=== PATIENT | male | born 1955 | race Caucasian/White ===

== ENCOUNTER 2019-07-03 18:44 | Inpatient (IN) | payer OTHER, MEDICAID ==
[~2019-07-03] VITALS: Ht 175.3 cm; Wt 75.7 kg
[2019-07-03 18:45] VITALS: BP_SYST 178
--- NOTE | 2019-07-03 18:49 | NUR ---
Patient to ER bed 05 to gown for evaluation. Side rails up.
--- NOTE | 2019-07-03 19:10 | NUR ---
Pt came to the ED for ambulance with lacquerer at bedside for low grade fever and cough. HX of quadriparesis, constipation, encephalopathy. No other complaints/injuries noted. Will cont. to monitor.
[2019-07-03 19:32] LABS: BASOPHILS # (AUTO) 0.1 K/uL (0.0-0.2); EOSINOPHILS # (AUTO) 0.3 K/uL (0.0-0.4); EOSINOPHILS % (AUTO) 3.4 % (0.0-4.0); HEMOGLOBIN 14.9 g/dL (14.0-18.0); LYMPHOCYTES # (AUTO) 2.3 K/uL (1.0-5.5); LYMPHOCYTES % (AUTO) 22.9 % (20.5-51.5); MEAN CORPUSCULAR HEMOGLOBIN 30 pg (27-31); MEAN CORPUSCULAR HGB CONC 33 % (32-36); MEAN CORPUSCULAR VOLUME 90 fL (79.0-98.0); MONOCYTES # (AUTO) 0.6 K/uL (0.0-1.0); MONOCYTES % (AUTO) 6.3 % (1.7-9.3); NEUTROPHILS # (AUTO) 6.6 K/uL (1.8-7.7); NEUTROPHILS % (AUTO) 66.4 % (40.0-70.0); PLATELET COUNT (AUTO) 258 K/uL (130-430); RED BLOOD CELL COUNT(AUTO) 5.03 MIL/uL (4.2-6.2); RED CELL DISTRIBUTION WIDTH 14.5 % (9.0-15.0)
[2019-07-03 19:55] LABS: CALCIUM 8.7 mg/dL (8.4-11.0); CREATININE 0.68 mg/dL (0.55-1.30); POTASSIUM 3.6 mmol/L (3.5-5.1)
--- NOTE | 2019-07-03 20:00 | NUR ---
Coral espinal in [facility] - 07/03/19 at 2023 by [email or web address] david Doss at bedside examining patient.
--- NOTE | 2019-07-03 20:00 | NUR ---
ER at bedside examining patient.
[2019-07-03 20:02] LABS: TOTAL BILIRUBIN 0.2 mg/dL (0.0-1.0)
[2019-07-03 20:11] LABS: INR 0.9 (0.80-1.20); PROTHROMBIN TIME 9.2 SECS (9.5-12.5)
--- NOTE | 2019-07-03 20:16 | NUR ---
Pts alarm adjuster Marlo at bedside. She reports that pt is a full code. She provided her "charge of house" Vidhi [phone].
[2019-07-03] MEDS ORDERED: ACETAMINOPHEN 325 MG TABLET PO PRN (22:00)
[2019-07-03] MEDS ORDERED: ONDANSETRON HCL 4 MG/2 ML VIAL IVP PRN (22:00)
[2019-07-03] MEDS ORDERED: IPRATROPIUM/ALBUTEROL SULFATE 3 ML AMPUL.NEB (DUONEB) INH PRN (22:00)
[2019-07-03] MEDS ORDERED: ZOLPIDEM TARTRATE 5 MG TABLET PO PRN (22:00)
[2019-07-03] MEDS ORDERED: cloNIDine HCL 0.1 MG TABLET PO PRN (22:15)
[2019-07-03] MEDS ORDERED: LORazepam 2 MG/ML VIAL IVP PRN (22:15)
--- NOTE | 2019-07-03 22:45 | NUR ---
Attempted to place in & out catheter per MD order. However, unable to advance catheter past 2 inches. Attempted with coude. Could not advance catheter. ER MD made aware.
[2019-07-03] MEDS ORDERED: DOCU250C14 PO (22:51)
[2019-07-03] MEDS ORDERED: MINE113C2 TP (22:51)
[2019-07-03] MEDS ORDERED: BISA10SU61 RC (22:51)
[2019-07-03] MEDS ORDERED: ASCO500T20 PO (22:51)
[2019-07-03] MEDS ORDERED: RANI-362 PO (22:51)
[2019-07-03] MEDS ORDERED: IBUP-1970 PO (22:51)
[2019-07-03] MEDS ORDERED: LOSA25TA3 PO (22:51)
[2019-07-03] MEDS ORDERED: ACET-2165 PO (22:51)
[2019-07-03] MEDS ORDERED: ATRMDI INH (22:51)
[2019-07-03] MEDS ORDERED: FLUT16SP16 NS (22:51)
[2019-07-03] MEDS ORDERED: POLY17PO4 PO (22:51)
[2019-07-03] MEDS ORDERED: [UNRECOGNIZED DRUG - CODE] PO (22:51)
[2019-07-03] MEDS ORDERED: [UNRECOGNIZED DRUG - CODE] PO (22:51)
[2019-07-03] MEDS ORDERED: MULT-1145 PO (22:51)
[2019-07-03] MEDS ORDERED: GUAI100S14 PO (22:51)
[2019-07-03] MEDS ORDERED: LOPE2CAP PO (22:51)
--- NOTE | 2019-07-03 22:52 | NUR ---
Medication reconciliation completed with information provided by [facility] [place] . Any prior medication reconciliation on file was reviewed and corrected.
[2019-07-03] MEDS ORDERED: AMIKACIN SULFATE 500 MG in NS 100 ML IV SCH (23:00)
--- NOTE | 2019-07-03 23:20 | NUR ---
ADMISSION NOTE Received patient from ER via samina, received report from JOSÉ LAWSON. Patient admitted with diagnosis of UTI AND MDRO URINE. Patient oriented to hospital routine, call light, toileting and safety-patient verbalized understanding.
[2019-07-03 23:22] VITALS: BP_SYST 153
[2019-07-03 23:28] VITALS: BP_SYST 153
--- NOTE | 2019-07-03 23:30 | NUR ---
OPENING NOTE RECEIVED CARE OF PT AND SBAR REPORT. PT IS AWAKE, NONVERBAL, NO SIGN OF PAIN BASED ON FLACC PAIN SCALE. BREATHING IS EVEN AND UNLABORED TO ROOM AIR. VSS. SAFETY AND FALL PRECAUTIONS ARE IN PLACE: BED IS LOCKED AND ALARMED IN LOWEST POSITION, SIDE RAILS UP X3, CALL LIGHT WITH PT, CLOSE TO NURSES STATION. WILL MONITOR.
[2019-07-04] MEDS: D5/0.45 NS 1,000 ML IV SCH ×3 (00:26→18:00)
--- NOTE | 2019-07-04 00:26 | NUR ---
IVF STARTED D51/2NS INFUSING AT 100 CC/HR.
[2019-07-04 00:35] VITALS: BP_SYST 135
[2019-07-04] MEDS ORDERED: AMIKACIN SULFATE 1000 MG/4 ML VIAL ONE (00:44)
--- NOTE | 2019-07-04 00:52 | NUR ---
AMIKACIN ANTIBIOTIC INFUSING ORDERED. NO S/S OF ADVERSE REACTION NOTED.
--- NOTE | 2019-07-04 02:35 | NUR ---
RN ROUNDS: PT RESTING IN BED, NO S/S OF ACUTE DISTRESS, BREATHING IS UNLABORED TO CPAP SETTINGS, NO SIGN OF PAIN OR DISCOMFORT. SAFETY AND CONTACT PRECAUTIONS REMAIN IN PLACE. WILL MONITOR.
--- NOTE | 2019-07-04 04:10 | NUR ---
IV RE-INSERTION: OLD IV PULLED OUT. Restarted on RIGHT HAND AND LEFT WRIST. Successful after MULTIPLE attempts. Resumed current IVF of D51/2NS and regulated @ 100 per hour. Will observe for any signs of infiltration.
--- NOTE | 2019-07-04 06:03 | NUR ---
INCONTINENCE CARE PT INCONTINENT OF URINE. PT CLEANED AND REPOSITIONED FOR COMFORT. NO S/S OF DISTRESS. BREATHING IS UNLABORED. IVF INFUSING AT ORDERED RATE. SAFETY AND CONTACT PRECAUTIONS ARE IN PLACE. WILL MONITOR.
--- NOTE | 2019-07-04 06:32 | NUR ---
CLOSING NOTE PT IS AWAKE, NONVERBAL, NO SIGN OF PAIN BASED ON FLACC PAIN SCALE. BREATHING IS EVEN AND UNLABORED. VSS. SAFETY AND FALL PRECAUTIONS ARE IN PLACE: BED IS LOCKED AND ALARMED IN LOWEST POSITION, SIDE RAILS UP X3, CALL LIGHT WITH PT, CLOSE TO NURSES STATION. WILL ENDORSE TO DAY SHIFT RN.
[2019-07-04 07:25] LABS: BASOPHILS # (AUTO) 0.1 K/uL (0.0-0.2); BASOPHILS % (AUTO) 0.5 % (0.0-2.0); EOSINOPHILS # (AUTO) 0.4 K/uL (0.0-0.4); HEMATOCRIT 44.1 % (36-54); HEMOGLOBIN 14.7 g/dL (14.0-18.0); LYMPHOCYTES # (AUTO) 1.9 K/uL (1.0-5.5); LYMPHOCYTES % (AUTO) 19.9 % (20.5-51.5); MEAN CORPUSCULAR HEMOGLOBIN 30 pg (27-31); MEAN CORPUSCULAR HGB CONC 33 % (32-36); MEAN CORPUSCULAR VOLUME 91 fL (79.0-98.0); MONOCYTES # (AUTO) 0.7 K/uL (0.0-1.0); MONOCYTES % (AUTO) 7.7 % (1.7-9.3); NEUTROPHILS # (AUTO) 6.4 K/uL (1.8-7.7); NEUTROPHILS % (AUTO) 67.9 % (40.0-70.0); PLATELET COUNT (AUTO) 244 K/uL (130-430); RED BLOOD CELL COUNT(AUTO) 4.85 MIL/uL (4.2-6.2); RED CELL DISTRIBUTION WIDTH 14.5 % (9.0-15.0); WHITE BLOOD COUNT (AUTO) 9.4 K/uL (4.8-10.8)
[2019-07-04 07:39] LABS: ALBUMIN 2.9 g/dL (3.4-4.8); CALCIUM 8.3 mg/dL (8.4-11.0); CREATININE 0.66 mg/dL (0.55-1.30); POTASSIUM 3.7 mmol/L (3.5-5.1); TOTAL BILIRUBIN 0.2 mg/dL (0.0-1.0)
--- NOTE | 2019-07-04 08:00 | NUR ---
ASSUMPTION OF CARE: RECEIVED PT AWAKE, ORIENTED TO NAME ONLY, HX: METAL DISORDER, DX: RISK FOR INJURY, R/T UTI, FEBRILE ILLNESS. PRESENTLY AFEBRILE, VSS, NO S/S OF DISTRESS, COOPERATIVE, FOLLOWS COMMAND, NO INDICATION OF PAIN OR DISCOMFORT. PT IS BREATHING EASY, LUNG SOUNDS ARE CLEAR, PULSES PALPABLE, FALL PRECAUTIONS IMPLEMENTED, SIDE RAILS UP X3, ROOM CLOSE TO NURSES STATION, WILL MONITOR CLOSELY, PT POSITIONED FOR COMFORT, IV SITE INTACT, PATENT, NO REDNESS OR SWELLING, CALL LIGHT PLACED WITHIN REACH, WILL CONT' TO MONITOR AND ASSESS.
[2019-07-04 08:46] VITALS: BP_SYST 147
--- NOTE | 2019-07-04 09:00 | NUR ---
SOFTWARE DESIGNER: MORNING MEDS GIVEN, PER ORDERED BY Khadijah, TOLERATED WELL, WILL CONT' TO MONITOR AND ASSESS.
--- NOTE | 2019-07-04 09:33 | NUR ---
Nutrition Update Santino Scale 13 noted. Pt admitted for febrile illness, UTI. Diet: cardiac, nectar thick liquids, puree BMI: 24.8 kg/m2 RD to follow per nutrition care standards.
[2019-07-04] MEDS ORDERED: ACETAMINOPHEN 325 MG TABLET PO PRN (12:00)
[2019-07-04] MEDS ORDERED: BISACODYL 10 MG/SUPPOSITORY RC PRN (12:00)
[2019-07-04] MEDS ORDERED: LOPERAMIDE HCL 2 MG CAPSULE PO PRN (12:00)
--- NOTE | 2019-07-04 12:00 | NUR ---
NURSES NOTES: PT REMAINS STABLE, WAS CLEANED, AND REPOSITIONED FOR COMFORT, TOLERATED WELL, NO SIGNIFICANT CHANGES NOTED, CALL LIGHT REMAINS WITHIN REACH, WILL CONT' WITH PLAN OF CARE.
[2019-07-04] MEDS: AMIKACIN SULFATE 1,100 MG in NS 250 ML IV SCH (12:27)
[2019-07-04 12:34] VITALS: BP_SYST 136
[2019-07-04] MEDS: IPRATROPIUM BROM 0.5 MG/2.5 ML VIAL.NEB (ATROVENT) INH SCH (13:00)
--- NOTE | 2019-07-04 14:00 | NUR ---
NURSES NOTES: PT REMAINS STABLE, WAS REPOSITIONED FOR COMFORT, TOLERATED WELL, NO SIGNIFICANT CHANGES NOTED, CALL LIGHT PLACED WITHIN REACH, WILL CONT' WITH PLAN OF CARE.
--- NOTE | 2019-07-04 14:57 | NUR ---
DCPA and Social Service contact MATERIAL LOADER met with Pt. at bedside for DCPA and SS contact. Pt. was alert and not well oriented, non-verbal admitted to [facility] for Febrile Illness . Pt. appeared confused, incapacitated and was unable to provide any meaningful information. Person to notify is his brother Ricardo Gonzales . Pt. [facility]. Pt. PCP is Dr. Ramirez Pt. is currently residing at [facility] , spoke with QUANTITATIVE SOFTWARE ENGINEER regarding Pt. Hx MATERIAL LOADER contacted [facility]. Pt. has been a resident at this facility since 07/17/13, pt is bed ridden, utilizes and electric wheelchair for mobility, full assist for ADLs. He is a client of the [facility], Dx; cerebral palsy and MR. Shipping Lead Person at [facility] is Sylwia Rob, . Per RN informed that current plan is for PT. to be D/C to [facility] as he currently is on IV Antibiotics, otherwise he has a 7 day bed hold at [facility]. DCP/CM/SS will remain available as needed.
[2019-07-04 16:28] VITALS: BP_SYST 129
--- NOTE | 2019-07-04 16:55 | NUR ---
WOUND EVALUATION: Wound Consult received from Dr. Ramirez. Thank you, Dr. Ramirez, for the consult. Patient received in a [place] Bed with an Atmos-Air 9000 mattress, awake, alert, non-verbal, holds onto bed rail with hand when asked to do so during wound care. Patient is unable to turn in bed independently. Santino Score is a 13. Past Medical History: Intellectually impaired, Cerebral Palsy, Hypertension, cardiac arrhythmia, Functional Quadriplegia, GERD. Recent Labs: WBC 9.4, RBC 4.85, hemoglobin 14.7, hematocrit 44.1, glucose 111, calcium 8.3, albumin 2.9, PT 9.2. Microbiology: Blood culture results 2 in progress. Urine culture results in progress. Intrinsic factors that delay wound healing: Cerebral Palsy, Hypoalbuminemia. Extrinsic factors that delay wound healing: Decreased mobility. Wound Assessment: 1. Left buttock: Pressure ulcer, present on admission. Wound bed has 90% dark red tissue, 10% white tissue. No odor, no drainage. Periwound intact. Surrounding tissue has scar tissue. Wound measures 1.5 cm x 1.0 cm. 2. Right buttock: Pressure ulcer, present on admission. Wound bed has 100% dark red tissue. No odor, no drainage. Periwound intact. Surrounding tissue has scar tissue. Wound measures 0.4 cm x 0.3 cm. Recommend: Cleanse wounds with normal saline. Apply moisture barrier cream to wounds and marvin-wounds. Apply Hydrogel to any portion of wound not covered by moisture barrier cream. Cover with Sacral foam dressing. Perform wound care daily, and as needed for dressing soiling or dislodgement. 3. Left proximal posterior thigh: Scar tissue, present on admission. Recommend: Cleanse involved area with mild soap and water. Pat dry. Apply moisture barrier cream to involved area. Perform site care 4 times a day, and as needed for soiling. 4. Scrotum: Erythema from IAD, present on admission. Recommend: Cleanse involved area with mild soap and water. Pat dry. Apply antifungal powder to involved area. Perform site care BID, and as needed for soiling. Also recommend: Reposition patient [id number] only every 2 hours with pillow support and off-load pressure areas with pillows for pressure re-distribution. Offload, elevate and float bilateral heels with one pillow lengthwise under each extremity at all times. Perform skin care and monitor skin integrity Q shift. Use moisture barrier cream on buttocks and other moisture susceptible areas QID and as needed for soiling. Place patient on a low air-loss mattress.
--- NOTE | 2019-07-04 18:00 | NUR ---
END OF SHIFT: PT REMAINS STABLE, IS BEING ASSISTED WITH EVENING MEAL, TOLERATING WELL, NO DISTRESS NOTED, NO INDICATION OF PAIN, WILL CONT' TO MONITOR, WILL ENDORSE TO ENERGY SCHEDULER NURSE.
[2019-07-04] MEDS: NYSTATIN 15 GM TOPICAL POWDER TP SCH ×2 (18:30→23:04)
--- NOTE | 2019-07-04 18:30 | NUR ---
WOUND CARE ASSESSMENT: WOUND ON BUTTOCKS ASSESSED AND TX BY ARACELI LAWSONMOUNTED POLICE OFFICER NURSE, CLEANED WITH NS, HYDROGEL AND BARRIER CREAM APPLIED, COVERED WITH FOAM DRESSING, OFF LOADED WITH PILLOW SUPPORT, MADE COMFORTABLE, NEEDS MET, WILL CONT' TO MONITOR AND ASSESS.
--- NOTE | 2019-07-04 19:30 | NUR ---
Opening notes Received report. Patient resting in bed. No signs of distress noted. Breathing even and unlabored. IV patent and intact, infusing fluids. No needs at this time. Call light with the patient, safety precautions in place.
[2019-07-04 19:44] LABS: BILIRUBIN,URINE NEGATIVE (NEGATIVE); BLOOD, URINE NEGATIVE (NEGATIVE); CLARITY/URINE CLEAR (CLEAR); COLOR,URINE YELLOW (YELLOW); GLUCOSE,URINE NEGATIVE (NEGATIVE); KETONES,URINE NEGATIVE (NEGATIVE); LEUKOCYTE ESTERASE ,URINE NEGATIVE (NEGATIVE); NITRITE, URINE NEGATIVE (NEGATIVE); PROTEIN URINE NEGATIVE (NEGATIVE); UROBILINOGEN,URINE 0.2 (0.2-1.0)
[2019-07-04 20:00] VITALS: BP_SYST 137
--- NOTE | 2019-07-04 21:30 | NUR ---
Resting Patient is resting in bed. No signs of distress noted. Breathing even and unlabored. IVF infusing well. Call light with the patient. Safety precautions in place.
--- NOTE | 2019-07-04 23:30 | NUR ---
Resting Patient resting in bed. Patient turned and repositioned to comfort. Hygiene care provided. call light with the patient. Safety precautions in place.
[2019-07-05 00:30] VITALS: BP_SYST 141
--- NOTE | 2019-07-05 02:00 | NUR ---
Sleeping Patient is sleeping. No signs of distress noted. Breathing even and unlabored on CPAP. IVF infusing well. No needs. Call light with the patient. Safety precautions in place.
--- NOTE | 2019-07-05 04:30 | NUR ---
Hygiene care provided. Patient tolerated well. Small smear of BM noted. Patient turned and repositioned. No other needs. Call light with the patient. Safety precautions in place.
--- NOTE | 2019-07-05 06:40 | NUR ---
Closing notes Patient resting in bed, no signs of distress noted. Breathing even and unlabored. IV patent and intact, infusing fluids. All needs met throughout the shift. Call light with the patient. Safety precautions in place. Will endorse care to day shift RN.
[2019-07-05] MEDS: IPRATROPIUM BROM 0.5 MG/2.5 ML VIAL.NEB (ATROVENT) INH SCH ×3 (08:19→20:53)
[2019-07-05 08:36] VITALS: BP_SYST 161
[2019-07-05] MEDS: CLORAZEPATE 3.75 MG PO SCH (09:00)
[2019-07-05] MEDS ORDERED: LOSARTAN POTASSIUM 25 MG TABLET PO SCH (09:00)
[2019-07-05] MEDS: MULTIVITS,CA,MINERALS/IRON/FA 1 TABLET PO SCH (09:09)
[2019-07-05] MEDS: DOCUSATE SODIUM 250 MG CAPSULE PO SCH (09:09)
[2019-07-05] MEDS: POLYETHYLENE GLYCOL 3350, 17 GM/ POWD.PACK PO SCH (09:09)
[2019-07-05] MEDS: ASCORBIC ACID 500 MG TABLET PO SCH (09:11)
[2019-07-05] MEDS: FLUTICASONE PROPIONATE 50 mCg/SPRAY 16 GM NS SCH (09:16)
[2019-07-05] MEDS: NYSTATIN 15 GM TOPICAL POWDER TP SCH ×2 (09:16→19:57)
[2019-07-05] MEDS: D5/0.45 NS 1,000 ML IV SCH ×3 (09:18→19:57)
[2019-07-05] MEDS: AMIKACIN SULFATE 1,100 MG in NS 250 ML IV SCH (11:28)
[2019-07-05 12:31] VITALS: BP_SYST 138
[2019-07-05 16:22] VITALS: BP_SYST 131
--- NOTE | 2019-07-05 16:22 | NUR ---
DC Planning: Per dr. Ramirez: he plans to dc pt on Monday and recommended pt goes to [facility]. CM please confirm pt agreement and inform snf choices.
--- NOTE | 2019-07-05 16:36 | NUR ---
Dietitian Recommendations * Recommend cardiac, puree, nectar thick liquid diet w/ Esteban BID (ONS Ensure Enlive TID comes standard/ pureed diet; provides an additional 1050 kcal/day, 60 gm protein/day; wound healing supplement provides ~180 kcal/day, 5 gm protein/day) JENNIFER REYES Please refer to Nutrition Assessment for details. Addendum: 07/05/19 at [address] Amended: Links added.
--- NOTE | 2019-07-05 18:26 | NUR ---
Patient tolerates meal well. Needs met at this time. Even unlabored respirations. Vital signs within normal limits. Will endorse care to night registered nurse. Balta Beavers RN
--- NOTE | 2019-07-05 19:10 | NUR ---
OPENING NOTES Bedside report received from dayshift nurse. Patient received lying in bed, awake, staring at the ceiling. No s/s of acute distress noted. Breathing is even and unlabored. IVF infusing well. IV site patent, no signs of infiltration or infection noted. Call light with patient. Bed alarm on. Bed is locked and at lowest position. Will continue to monitor.
[2019-07-05 20:00] VITALS: BP_SYST 125
--- NOTE | 2019-07-05 21:00 | NUR ---
PERICARE Patient in bed receiving marvin care from DIRECTOR OF SEARCH ENGINE OPTIMIZATION. Patient tolerating well. All needs met. IVF infusing well. Bed alarm on. Will continue to monitor.
--- NOTE | 2019-07-05 23:00 | NUR ---
ROUNDS Patient in bed asleep. No s/s of acute distress noted. Breathing even and unlabored. IVF infusing well. Bed alarm on. Will continue to monitor.
[2019-07-06] VITALS (7 sets, daily range): BP systolic 118–152
[2019-07-06] MEDS: IPRATROPIUM BROM 0.5 MG/2.5 ML VIAL.NEB (ATROVENT) INH SCH ×5 (00:13→20:00)
--- NOTE | 2019-07-06 01:00 | NUR ---
ROUNDS Patient in bed, sleeping. No s/s of acute distress noted. Breathing even and unlabored. IV infusing well. Bed alarm on. Will continue to monitor.
--- NOTE | 2019-07-06 03:00 | NUR ---
ROUNDS Patient in bed, sleeping. No s/s of acute distress noted. Breathing even and unlabored. IVF infusing well. Bed alarm on. Will continue to monitor.
--- NOTE | 2019-07-06 05:00 | NUR ---
PERICARE/WOUNDCARE Patient cleaned by KIER OPERATOR and RN at this time. Woundcare done at this time. Patient tolerated well. All needs met. Bed alarm on. Will continue to monitor.
[2019-07-06] MEDS: D5/0.45 NS 1,000 ML IV SCH ×2 (05:06→20:52)
--- NOTE | 2019-07-06 06:14 | NUR ---
CLOSING NOTES Patient in bed asleep at this time. No s/s of acute distress noted. Breathing even and unlabored. IVF infusing well, IV site is patent, no signs of infiltration or infection noted. HOB slightly raised. All needs met throughout shift. Fall, safety, and isolation precautions maintained throughout shift. Will continue to monitor until patient care is endorsed to oncoming dayshift nurse.
--- NOTE | 2019-07-06 07:14 | NUR ---
PATIENT OPENS EYES, MUMBLES. ON ROOM AIR. IV ON LEFT HAND, #22, INFUSED WITH D5 1/2 NS AT 100ML, SITE INTACT AND PATENT AT THIS TIME. IN ISO. CALL LIGHT IN PLACE, BED LOCKED AT THE LOWEST POSITION, WILL CONTINUE TO MONITOR.
[2019-07-06] MEDS: ASCORBIC ACID 500 MG TABLET PO SCH (08:13)
[2019-07-06] MEDS: LOSARTAN POTASSIUM 25 MG TABLET PO SCH (08:13)
[2019-07-06] MEDS: NYSTATIN 15 GM TOPICAL POWDER TP SCH ×2 (08:14→20:54)
[2019-07-06] MEDS: MULTIVITS,CA,MINERALS/IRON/FA 1 TABLET PO SCH (08:14)
[2019-07-06] MEDS: DOCUSATE SODIUM 250 MG CAPSULE PO SCH (08:14)
[2019-07-06] MEDS: FLUTICASONE PROPIONATE 50 mCg/SPRAY 16 GM NS SCH (08:15)
[2019-07-06] MEDS: CLORAZEPATE 3.75 MG PO SCH (08:47)
--- NOTE | 2019-07-06 09:40 | NUR ---
PATIENT IS TRANSFERRED INTO A LOW AIR LOSS MATTRESS. TOLERATED WITHOUT DISTRESS.
[2019-07-06] MEDS: AMIKACIN SULFATE 1,100 MG in NS 250 ML IV SCH (11:41)
--- NOTE | 2019-07-06 12:45 | NUR ---
PATIENT IS FED LUNCH, TOLERATED WITHOUT DISTRESS.
--- NOTE | 2019-07-06 15:12 | NUR ---
Patient is turned and repositioned for comfort.
--- NOTE | 2019-07-06 18:00 | NUR ---
Patient is fed by CORRECTIONAL FACILITY NURSE, tolerated without distress.
--- NOTE | 2019-07-06 19:45 | NUR ---
OPENING NOTES Patient is resting, eyes open, waving hands around, no respiratory distress observed. IVF running, dressings c/d/i. Q2H turning to be provided, heels elevated with a pillow, SCDs on. Call light within reach, bed alarm on, bed at lowest position. Will continue to monitor.
[2019-07-07 00:34] VITALS: BP_SYST 150
[2019-07-07] MEDS: IPRATROPIUM BROM 0.5 MG/2.5 ML VIAL.NEB (ATROVENT) INH SCH ×4 (01:32→20:11)
[2019-07-07] MEDS: D5/0.45 NS 1,000 ML IV SCH ×2 (06:19→17:55)
--- NOTE | 2019-07-07 06:56 | NUR ---
CLOSING NOTES Patient is resting, eyes open, waving hands around, no respiratory distress observed. IVF running, dressings c/d/i. Q2H provided, wound care provided, and heels elevated with a pillow, SCDs on. Call light within reach, bed alarm on, bed at lowest position. All needs met throughout shift.
[2019-07-07 08:00] VITALS: BP_SYST 123
[2019-07-07 08:51] LABS: ALBUMIN 3.3 g/dL (3.4-4.8); CALCIUM 8.9 mg/dL (8.4-11.0); CREATININE 0.62 mg/dL (0.55-1.30); POTASSIUM 3.9 mmol/L (3.5-5.1); TOTAL BILIRUBIN 0.4 mg/dL (0.0-1.0)
[2019-07-07] MEDS: ASCORBIC ACID 500 MG TABLET PO SCH (08:51)
[2019-07-07] MEDS: LOSARTAN POTASSIUM 25 MG TABLET PO SCH (08:51)
[2019-07-07] MEDS: MULTIVITS,CA,MINERALS/IRON/FA 1 TABLET PO SCH (08:51)
[2019-07-07] MEDS: FLUTICASONE PROPIONATE 50 mCg/SPRAY 16 GM NS SCH (08:51)
[2019-07-07] MEDS: DOCUSATE SODIUM 250 MG CAPSULE PO SCH (08:51)
[2019-07-07] MEDS: NYSTATIN 15 GM TOPICAL POWDER TP SCH ×2 (08:52→22:23)
[2019-07-07] MEDS: CLORAZEPATE 3.75 MG PO SCH (09:00)
--- NOTE | 2019-07-07 09:00 | NUR ---
PATIENT IS FED BREAKFAST. TOLERATED WITHOUT DISTRESS.
[2019-07-07 10:30] LABS: BASOPHILS % (AUTO) 0.5 % (0.0-2.0); EOSINOPHILS # (AUTO) 0.3 K/uL (0.0-0.4); EOSINOPHILS % (AUTO) 3.2 % (0.0-4.0); HEMATOCRIT 45.3 % (36-54); HEMOGLOBIN 15.3 g/dL (14.0-18.0); LYMPHOCYTES # (AUTO) 1.4 K/uL (1.0-5.5); LYMPHOCYTES % (AUTO) 16.7 % (20.5-51.5); MEAN CORPUSCULAR HEMOGLOBIN 30 pg (27-31); MEAN CORPUSCULAR HGB CONC 34 % (32-36); MEAN CORPUSCULAR VOLUME 89 fL (79.0-98.0); MONOCYTES # (AUTO) 0.5 K/uL (0.0-1.0); MONOCYTES % (AUTO) 6.4 % (1.7-9.3); NEUTROPHILS # (AUTO) 6.2 K/uL (1.8-7.7); NEUTROPHILS % (AUTO) 73.2 % (40.0-70.0); PLATELET COUNT (AUTO) 227 K/uL (130-430); RED BLOOD CELL COUNT(AUTO) 5.11 MIL/uL (4.2-6.2); RED CELL DISTRIBUTION WIDTH 14.2 % (9.0-15.0); WHITE BLOOD COUNT (AUTO) 8.5 K/uL (4.8-10.8)
[2019-07-07] MEDS: AMIKACIN SULFATE 1,100 MG in NS 250 ML IV SCH (10:58)
--- NOTE | 2019-07-07 11:04 | NUR ---
Discharge Planning: [facility] faxed pt referral to Sai Aldrich (f [phone] p [phone]) [facility] to follow up. Addendum: 07/07/19 at 1455 by Leona Petty DP DCP followed up with Seb Aldrich (f [phone] p [phone]) per liaison patient has a share cost of $1680.00 monthly. BELLE called patient brother Ricardo Gonzales ([phone]) he instructed to call patients correctional case manager Sylwia Rob [phone] BELLE left message on voice mail.
[2019-07-07 12:00] VITALS: BP_SYST 115
[2019-07-07 16:00] VITALS: BP_SYST 130
[2019-07-07 19:30] VITALS: BP_SYST 120
--- NOTE | 2019-07-07 19:30 | NUR ---
OPENING NOTES Patient is resting, eyes open, resting, no acute respiratory distress observed. IVF running, dressings c/d/i. Q2H turning to be provided, heels elevated with a pillow, SCDs on. Call light within reach, bed alarm on, bed at lowest position. Will continue to monitor.
[2019-07-08 00:31] VITALS: BP_SYST 149
--- NOTE | 2019-07-08 01:22 | NUR ---
Wound care provided, no signs of distress observed. Will continue to monitor.
[2019-07-08] MEDS: IPRATROPIUM BROM 0.5 MG/2.5 ML VIAL.NEB (ATROVENT) INH SCH ×4 (01:50→19:52)
[2019-07-08] MEDS: D5/0.45 NS 1,000 ML IV SCH (02:59)
--- NOTE | 2019-07-08 04:11 | NUR ---
Incontinence care provided, no signs of distress observed. IVF running, dressings c/d/i. Will continue to monitor.
--- NOTE | 2019-07-08 07:24 | NUR ---
CLOSING NOTES Patient is resting, eyes open, resting, no acute respiratory distress observed. IVF running, dressings c/d/i. Q2H turning provided, heels elevated with a pillow, SCDs on. CPAP machine on the patient throughout the night. Call light within reach, bed alarm on, bed at lowest position. All needs met throughout shift. Will endorse care to oncoming shift.
[2019-07-08] MEDS: DOCUSATE SODIUM 250 MG CAPSULE PO SCH (08:22)
[2019-07-08] MEDS: ASCORBIC ACID 500 MG TABLET PO SCH (08:23)
[2019-07-08] MEDS: LOSARTAN POTASSIUM 25 MG TABLET PO SCH (08:23)
[2019-07-08] MEDS: MULTIVITS,CA,MINERALS/IRON/FA 1 TABLET PO SCH (08:23)
[2019-07-08] MEDS: FLUTICASONE PROPIONATE 50 mCg/SPRAY 16 GM NS SCH (08:23)
[2019-07-08] MEDS: NYSTATIN 15 GM TOPICAL POWDER TP SCH ×2 (08:24→22:17)
[2019-07-08] MEDS: POLYETHYLENE GLYCOL 3350, 17 GM/ POWD.PACK PO SCH (08:24)
[2019-07-08 08:31] VITALS: BP_SYST 151
[2019-07-08] MEDS: CLORAZEPATE 3.75 MG PO SCH (09:00)
--- NOTE | 2019-07-08 09:30 | NUR ---
Skin care/comfort Had big bowel movement soft stool , total TSB , perineal care given, buttocks skin irritation is dried now skin intact, skin cream barrier applied repositioned, bilateral heel kept floating supported by pillow.
[2019-07-08] MEDS: AMIKACIN SULFATE 1,100 MG in NS 250 ML IV SCH (10:28)
[2019-07-08 12:42] VITALS: BP_SYST 131
--- NOTE | 2019-07-08 13:00 | NUR ---
Assisted in feeding tolerates well with out aspiration, very good appetite.
--- NOTE | 2019-07-08 14:09 | NUR ---
Discharge Planning: DCP spoke to Vidal at [facility] (f [phone] p [phone]) patient accepted to Rm 16A, patient to transfer at 8:00pm. Facility needs time to have equipment arrive for patient. Addendum: 07/08/19 at 1650 by Leona Petty DP DCP called patients regional upper caser left message in morning and this afternoon regarding patient placement with share of cost Sylwia Rob [phone].
--- NOTE | 2019-07-08 15:30 | NUR ---
Patient repositioned by staff every 2 hours with pillow support, bilateral heel kept elevated to pillow.
--- NOTE | 2019-07-08 16:10 | NUR ---
Paged Dr. Ramirez for discharge order
[2019-07-08 16:13] VITALS: BP_SYST 121
--- NOTE | 2019-07-08 16:43 | NUR ---
DC PLANNING CALLED [facility] NUMBER REQUESTING IF PATIENT IS LINKED TO [facility] SAID YES TO CONTACT [employer] SAFETY TEST ENGINEER OF THE HOUSE AT PHONE NUMBER [phone]. CALLED [facility] AT [phone] LET MESSAGE FOR CALL BACK TO NURSING STATION AND OR CN. ALSO PROVIDED CM CONTACT NUMBER AFTER HOURS.
--- NOTE | 2019-07-08 18:00 | NUR ---
Patient accidentally removed the left hand IV cannula, pressure dressing applied.
--- NOTE | 2019-07-08 18:35 | NUR ---
Still waiting from approval of transfer from [facility].
[2019-07-08 19:20] VITALS: BP_SYST 137
--- NOTE | 2019-07-08 19:49 | NUR ---
OPENING NOTES Patient is resting, eyes closed, resting, no acute respiratory distress observed. IV site patent, dressings c/d/i. Q2H turning to be provided, heels elevated with a pillow, SCDs on. Call light within reach, bed alarm on, bed at lowest position. Will continue to monitor, waiting for approval of transfer from regional as endorsed from morning shift.
--- NOTE | 2019-07-08 22:40 | NUR ---
Patient is resting, mumbling, no signs of distress observed. Safety precautions in place. Will continue to monitor.
--- NOTE | 2019-07-09 00:01 | NUR ---
Patient is resting, no signs of acute respiratory distress observed at this time. Will continue to monitor.
--- NOTE | 2019-07-09 00:05 | NUR ---
Patient is resting, no signs of acute respiratory distress, quiet at this time. Will continue to monitor.
[2019-07-09 00:11] VITALS: BP_SYST 148
[2019-07-09] MEDS: IPRATROPIUM BROM 0.5 MG/2.5 ML VIAL.NEB (ATROVENT) INH SCH ×3 (00:40→13:21)
--- NOTE | 2019-07-09 02:40 | NUR ---
Patient is resting, no signs of distress observed at this time. Will continue to monitor.
--- NOTE | 2019-07-09 04:20 | NUR ---
Incontinence care provided, patient has no distress at this time, CPAP machine in use. Will continue to monitor.
--- NOTE | 2019-07-09 05:46 | NUR ---
CLOSING NOTES Patient is resting, eyes closed, resting, no acute respiratory distress observed. IV site patent, dressings c/d/i. Q2H turning provided, heels elevated with a pillow, SCDs on. Call light within reach, bed alarm on, bed at lowest position. Will endorse care to oncoming shift.
[2019-07-09 08:00] VITALS: BP_SYST 138
--- NOTE | 2019-07-09 12:22 | NUR ---
Discharge Planning: Per CM pt has been accepted at [facility] ([phone]); pt will go to room 16A. S ambulance has been set up with [facility] ([phone]); sweet pickle maker at 3:00pm. Packet has been taken to nurses station. Addendum: 07/09/19 at 1546 by Gina Quinonez LCSW CINDI placed call to Sylwia Rob [phone] and left her a message to return call to nurses station.
[2019-07-09 12:39] VITALS: BP_SYST 117
[2019-07-09 15:31] VITALS: BP_SYST 117
[2019-07-09 16:10] VITALS: BP_SYST 112
--- NOTE | 2019-07-09 17:31 | NUR ---
1600 spoke to sherly at [facility] and report given. also to ambulance drivers. pt will continue with antibiotics for 5 more dayss. family called,but no answer. message left to inform of transfer. info given to KISHOR.
== END 2019-07-09 15:30 | DRG 871 ==
LOC: SED 18:44 → SMU 22:00
PROVIDERS: ADMIT Internal Medicine; ATTEND Internal Medicine
DX: A41.9 Sepsis, unspecified organism (principal); R53.2 Functional quadriplegia; N39.0 Urinary tract infection, site not specified; Z16.24 Resistance to multiple antibiotics; K21.9 Gastro-esophageal reflux disease without esophagitis; G80.9 Cerebral palsy, unspecified; F79 Unspecified intellectual disabilities; I10 Essential (primary) hypertension; Z88.0 Allergy status to penicillin; Z88.1 Allergy status to other antibiotic agents; Z79.899 Other long term (current) drug therapy; Z90.49 Acquired absence of other specified parts of digestive tract
CPT/HCPCS: 36415; 71045; 80053; 80150; 81003; 83605; 83880; 84484; 85025; 85610-TC; 85730-TC; 87040-TC; 87086; 94640; 94660; 94760; 99285; J0278; J7050